=== PATIENT | male | born 1965 | race Caucasian/White ===

== ENCOUNTER 2024-11-21 10:43 | Inpatient (IN) | payer BC ==
[~2024-11-21] VITALS: Ht 193 cm; Wt 93.2 kg
[2024-11-21] MEDS: ONDANSETRON 4MG 2ML VIAL IV ONE (14:14)
[2024-11-21] MEDS: NS 500 ML IV ONE (14:14)
[2024-11-21] MEDS: MORPHINE 4 MG/ML 1 ML VIAL IV ONE (14:15)
[2024-11-21 14:19] LABS: BASO # 0.0 10^3/uL (0.0-0.2); BASO % 0.2 % (0.0-1.0); EOS # 0.0 10^3/uL (0.0-0.5); EOS % 0.0 % (0.0-3.0); LYMPH # 0.5 10^3/uL (1.5-5.0); LYMPH % 5.7 % (24.0-44.0); MONO # 0.6 10^3/uL (0.0-0.8); MONO % 6.4 % (2.0-8.0); NEUTROPHILS # 7.9 10^3/uL (1.5-8.5); NEUTROPHILS % 87.0 % (36.0-66.0); PLATELET COUNT, AUTOMATED 177 10^3/uL (150-450)
[2024-11-21 14:37] LABS: CK-MB VALUE MASS 5.5 NG/ML (<3.6)
[2024-11-21 14:42] LABS: CPK CREATINE PHOSPHOKINASE 294.0 U/L (46-171); MB/CK RELATIVE INDEX 1.87 (< OR =4)
[2024-11-21] MEDS ORDERED: ISOVUE-370 76% 100 ML VIAL As Ordered ONE (14:44)
[2024-11-21] MEDS ORDERED: PROMETHAZINE 25MG/ML 1ML VIAL IV PRN (16:25)
[2024-11-21] MEDS ORDERED: LACTULOSE 20 GM/30 ML SYRUP UDC PO PRN (16:30)
[2024-11-21] MEDS ORDERED: SENNOSIDES/DOCUSATE SODIUM 8.6 MG/50MG TAB PO PRN (16:30)
[2024-11-21] MEDS ORDERED: MOM 30 ML SUSPENSION UDC PO PRN (16:30)
[2024-11-21] MEDS ORDERED: NALOXONE INJ 0.4 MG/1 ML VIAL IV PRN (16:30)
[2024-11-21] MEDS ORDERED: HOME MED LIST COMPLETE! XX SCH (16:40)
[2024-11-21] MEDS ORDERED: PERC7.5T11 PO (17:04)
[2024-11-21] MEDS ORDERED: IBUP-1022 PO (17:04)
[2024-11-21] MEDS ORDERED: SOMA350T PO (17:04)
[2024-11-21 17:12] VITALS: BP 185/86; TEMP 99.3; O2SAT 97
[2024-11-21] MEDS ORDERED: AMLO-751 PO (17:26)
[2024-11-21] MEDS ORDERED: BLOO-175 XX (17:26)
[2024-11-21] MEDS: HYDROMORPHONE HCL 0.5 MG/0.5 ML SYRINGE IV ONE (17:30)
[2024-11-21] MEDS: LOSARTAN 50 MG TABLET PO ONE (17:30)
[2024-11-21] MEDS: ACETAMINOPHEN 500 MG TAB PO SCH (17:31)
[2024-11-21] MEDS: KETOROLAC 30 MG/ML 1 ML VIAL IV SCH (17:31)
[2024-11-21] MEDS: NS (Normal Saline) 0.9% 1,000 ML IV SCH (17:32)
[2024-11-21 19:17] VITALS: BP 129/59; TEMP 97.5; O2SAT 94
[2024-11-21 20:00] VITALS: BP 129/59; TEMP 97.5; O2SAT 94
[2024-11-21] MEDS: DICLOFENAC EPOLAMINE 1.3% PATCH TOP SCH (20:03)
[2024-11-21 23:14] VITALS: BP 101/55; TEMP 97.8; O2SAT 94
[2024-11-22] VITALS: BP 101/55; TEMP 97.8; O2SAT 94
[2024-11-22] MEDS: HYDROMORPHONE HCL 0.5 MG/0.5 ML SYRINGE IV PRN (00:08)
[2024-11-22 03:12] VITALS: BP 132/66; TEMP 97.3; O2SAT 95
[2024-11-22 04:00] VITALS: BP 132/66; TEMP 97.3; O2SAT 95
[2024-11-22] MEDS: HYDROMORPHONE HCL 0.5 MG/0.5 ML SYRINGE IV ONE (07:51)
[2024-11-22 08:01] VITALS: BP 156/88; TEMP 97; O2SAT 95
[2024-11-22 08:33] VITALS: BP 156/88
[2024-11-22] MEDS: amLODIPine 10 MG TAB PO SCH (08:33)
[2024-11-22] MEDS ORDERED: KETOROLAC 30 MG/ML 1 ML VIAL IV ONE (12:00)
[2024-11-22] MEDS ORDERED: ACETAMINOPHEN 500 MG TAB PO ONE (12:00)
[2024-11-22] MEDS ORDERED: HYDROMORPHONE HCL 0.5 MG/0.5 ML SYRINGE IV ONE (12:05)
== END 2024-11-22 12:46 | disposition home or self-care (01) | DRG 347 ==
LOC: M ED 10:43 → M ED INP 15:36 → M PCU 17:07
PROVIDERS: ADMIT General Practice; ATTEND General Practice
DX: S32.010A Wedge compression fracture of first lumbar vertebra, initial encounter for closed fracture (principal); S22.20XA Unspecified fracture of sternum, initial encounter for closed fracture; W01.198A Fall on same level from slipping, tripping and stumbling with subsequent striking against other object, initial encounter; Y92.9 Unspecified place or not applicable; M25.551 Pain in right hip; F10.90 Alcohol use, unspecified, uncomplicated; J98.11 Atelectasis; D35.00 Benign neoplasm of unspecified adrenal gland